=== PATIENT | male | born 1985 | race Two or more races ===

== ENCOUNTER 2016-08-26 18:15 | Emergency (ER) | payer BC ==
[2016-08-26] MEDS ORDERED: 0.9 % SODIUM CHLORIDE 1,000 ML BAG IV ONE (19:23)
--- NOTE | 2016-08-26 19:25 | Emergency Department Record ---
History of Present Illness - General Chief Complaint: Abdominal Pain Stated Complaint: RT SIDE PAIN Time Seen by Provider: 08/26/16 19:16 Source: Patient Mode of Arrival: Ambulatory - History of Present Illness Initial Comments: The patient states he has had RLQ and right flank pains over the past week waxing and waning, up to 5-6/10 scale severity. Since it is not going away he decided to get it checked. He denies f,c,n,v,d, urinary symptoms. He has had two hernia repairs in the past. MD Complaint: Abdominal pain, Flank pain Onset/Timin -: Week(s) Location: R Flank Radiation: RLQ Severity: Mild Consistency: Intermittent Improves With: Nothing Worsens With: Nothing - Related Data Home Medications Medication Instructions Recorded Confirmed Last Taken No Home Med [NO HOME MEDS] 08/26/16 08/26/16 Unknown Allergies Allergy/AdvReac Type Severity Reaction Status Date / Time No Known Drug Allergies Allergy Verified 08/26/16 18:44 Travel Screening - Travel/Exposure Within Last 30 Days Have you traveled within the last 30 days?: No - Travel/Exposure Within Last Year Have you traveled outside the [place] in the last year?: Yes Location Detail:: 11 months ago Cong - Additonal Travel Details Have you been exposed to anyone with a communicable illness?: No - Travel Symptoms Symptom Screening: None Review of Systems Reviewed: No additional complaints except as noted below Constitutional: Reports: As per HPI. Denies: Chills, Fever, Malaise, Night sweats, Weakness, Weight change Eyes: Reports: As per HPI. Denies: Eye discharge, Eye pain, Photophobia, Vision change ENT: Reports: As per HPI. Denies: Congestion, Dental pain, Ear pain, Epistaxis , Hearing loss, Throat pain Respiratory: Reports: As per HPI. Denies: Cough, Dyspnea, Hemoptysis, Stridor, Wheezes Cardiovascular: Reports: As per HPI. Denies: Arrhythmia, Chest pain, Dyspnea on exertion, Edema, Murmurs, Orthopnea, Palpitations, Paroxysmal nocturnal dyspnea, Rheumatic Fever, Syncope Endocrine: Reports: As per HPI. Denies: Fatigue, Heat or cold intolerance, Polydipsia, Polyuria Gastrointestinal: Reports: As per HPI. Denies: Abdominal pain, Constipation, Diarrhea, Hematemesis, Hematochezia, Melena, Nausea, Vomiting Genitourinary: Reports: As per HPI. Denies: Dysuria, Frequency, Hematuria, Incontinence, Retention, Testicular pain, Testicular mass, Urgency Musculoskeletal: Reports: As per HPI. Denies: Arthralgia, Back pain, Gout, Joint swelling, Myalgia, Neck pain Skin: Reports: As per HPI. Denies: Bruising, Change in color, Change in hair/ nails, Lesions, Pruritus, Rash Neurological: Reports: As per HPI. Denies: Abnormal gait, Confusion, Headache, Numbness, Paresthesias, Seizure, Tingling, Tremors, Vertigo, Weakness Psychiatric: Reports: As per HPI. Denies: Anxiety, Auditory hallucinations, Depression, Homicidal thoughts, Suicidal thoughts, Visual hallucinations Hematological/Lymphatic: Reports: As per HPI. Denies: Anemia, Blood Clots, Easy bleeding, Easy bruising, Swollen glands Past Medical History - SOCIAL HISTORY Smoking Status: Current every day smoker Alcohol Use: Rare Drug Use: None - RESPIRATORY Hx Respiratory Disorders: No - CARDIOVASCULAR Hx Cardio Disorders: No - NEURO Hx Neuro Disorders: No - GI Hx GI Disorders: Yes Hx Diverticulitis: Yes - Hx Genitourinary Disorders: No - ENDOCRINE Hx Endocrine Disorders: No - MUSCULOSKELETAL Hx Musculoskeletal Disorders: No - PSYCH Hx Psych Problems: No - HEMATOLOGY/ONCOLOGY Hx Hematology/Oncology Disorders: No Family Medical History Any Significant Family History?: Yes Hx Cancer: Mother Physical Exam - General General Appearance: Alert, Oriented x3, Cooperative, No acute distress - Head Head exam: Normal inspection - Eye Eye exam: Normal appearance, PERRL Pupils: Normal accommodation - ENT ENT exam: Normal exam, Mucous membranes moist, Normal external ear exam, Normal orophraynx, TM's normal bilaterally Ear exam: Normal external inspection. negative: External canal tenderness Nasal Exam: Normal inspection. negative: Discharge, Sinus tenderness Mouth exam: Normal external inspection, Tongue normal Teeth exam: Normal inspection. negative: Dental caries Throat exam: Normal inspection. negative: Tonsillar erythema, Tonsillar exudate - Neck Neck exam: Normal inspection, Full ROM. negative: Tenderness - Respiratory Respiratory exam: Normal lung sounds bilaterally. negative: Respiratory distress - Cardiovascular Cardiovascular Exam: Regular rate, Normal rhythm, Normal heart sounds - GI/Abdominal GI/Abdominal exam: Soft, Normal bowel sounds. negative: Tenderness - Rectal Rectal exam: Deferred - exam: Deferred - Extremities Extremities exam: Normal inspection, Full ROM, Normal capillary refill. negative: Tenderness - Back Back exam: Reports: Normal inspection, CVA tenderness (R) (tender over deep palpation of right flank, no colicky pain or visible discomfort. No swelling or ecchymosis.), Full ROM. Denies: Muscle spasm, Rash noted, Tenderness - Neurological Neurological exam: Alert, Normal gait, Oriented X3, Reflexes normal - Psychiatric Psychiatric exam: Normal affect, Normal mood - Skin Skin exam: Dry, Intact, Normal color, Warm Course Vital Signs 08/26/16 18:46 Temperature 98.1 F Pulse Rate 84 Respiratory 18 Rate Blood Pressure 139/85 Pulse Ox 98 - Reevaluation(s) Reevaluation #1: All labs normal. CT scan being read. Patient is comfortable awaiting results. He declined pain medication. 08/26/16 22:10 08/26/16 22:34 Reevaluation #2: Patient's lab and CT results were discussed. He has a trace of blood in his urine but no abnormality of CT scan and a normal visualized appendix. He is to follow up with Dr. Calderon his PCP for recheck of the trace of blood in his urine. He is comfortable at this time. 08/26/16 22:30 Medical Decision Making - Management Options MDM Management: No Additional Work-up Planned - Data Complexity MDM Data: Labs Ordered and/or Reviewed, X-Ray Ordered and/or Reviewed (Contrast CT abd/pelvis: No acute abnormality seen. Appendix is visualized and normal per radiologist.) - Lab Data Result diagrams: 08/26/16 19:40 08/26/16 19:40 Disposition Disposition: Discharge Clinical Impression: Right flank pain Disposition: Home, Self-Care Condition: (1) Good Instructions: Flank Pain, Cmo & President (GEN) Additional Instructions: No lifting bending twisting if having symptoms. Follow up with PCP for recheck of trace amount of blood in urine and routine follow up.
[2016-08-26 19:49] LABS: BASO % 0.4 % (0-6); EOS % 3.2 % (0-6); GRAN % 49.1 % (47-80); HEMATOCRIT 45.3 % (42.0-52.0); HEMOGLOBIN 15.4 gm/dl (14.0-18.0); LYMPH % 40.1 % (16-45); MEAN CELL VOLUME 90.4 fl (81-97); MEAN CORPUSCULAR HEMOGLOBIN 30.7 pg (27-33); MEAN PLATELET VOLUME 9.7 fl (7.4-10.4); MONO % 7.2 % (0-9); PLATELET COUNT 262 K/uL (130-400); RED BLOOD COUNT 5.01 M/uL (4.40-5.70); RED CELL DISTRIBUTION WIDTH 12.5 % (11.5-14.5); WHITE BLOOD COUNT W/O DIFF 10.3 K/uL (4.2-12.2)
[2016-08-26 19:50] LABS: URINE APPEARANCE CLEAR; URINE BILIRUBIN NEGATIVE (NEGATIVE); URINE BLOOD TRACE-I (NEGATIVE); URINE COLOR YELLOW; URINE GLUCOSE (UA) NEGATIVE (NEGATIVE); URINE KETONE NEGATIVE (NEGATIVE); URINE LEUKOCYTE ESTERASE NEGATIVE (NEGATIVE); URINE NITRITE NEGATIVE (NEGATIVE); URINE PROTEIN NEGATIVE (NEGATIVE); URINE UROBILINOGEN 0.2 E.U./dL (0.20 - 1.00)
[2016-08-26 19:58] LABS: URINE EPITHELIAL CELLS 0 - 2 (FEW); URINE RBC 0 - 2 (NONE SEEN); URINE WBC 0 - 2 (0-2/hpf)
[2016-08-26 20:00] LABS: ALBUMIN 4.6 gm/dL (3.5-5.0); ALKALINE PHOSPHATASE 96 U/L (38-126); ALT/SGPT 66 U/L (21-72); AMYLASE 103 U/L (30-110); ANION GAP 13.4 (7-16); AST/SGOT 35 U/L (17-59); BLOOD UREA NITROGEN 14 mg/dL (9-20); CARBON DIOXIDE 27.6 mmol/L (22-30); CREATININE 0.8 mg/dL (0.66-1.25); EST GLOMERULAR FILTRATION RATE > 60 ml/min; GLUCOSE,RANDOM 93 mg/dL (70-110); LIPASE 48 U/L (23-300); TOTAL PROTEIN 7.9 gm/dL (6.3-8.2)
[2016-08-26 20:12] LABS: TROPONIN I < 0.012 ng/mL (0.00-0.034)
== END 2016-08-26 22:42 | disposition home or self-care (01) ==
LOC: ER 18:15
DX: R10.31 Right lower quadrant pain (principal); R31.29 Other microscopic hematuria
CPT/HCPCS: 99284 ×2; 82150; 83690; 85025; 80076; 84484; 80048; 81001; 74177; Q9967; J7030

== ENCOUNTER 2018-02-06 20:07 | Emergency (ER) | payer BC ==
[2018-02-06] MEDS ORDERED: SODIUM CHLORIDE 0.9% 500 ML IV ONE (20:19)
--- NOTE | 2018-02-06 20:19 | Emergency Department Record ---
History of Present Illness - General Chief Complaint: Chest Pain Stated Complaint: CHEST PAIN Source: Patient Mode of Arrival: Ambulatory Limitations: No limitations - History of Present Illness Initial Comments: 32 yo male presents with chest pain. The pain started on Monday. The pain is mid chest, it radiates to the back and left arm. Over the last 5 days the pain has been constant and present 100% of the time. The pain has never completely resolved. The intensity does change depending on his position or movement. The pain seems to be worse going from laying to up right or back down again. The change in position is the main worsening factor that affects the pain. No shortness of breath, sweating, exertion symptoms, edema, calf pain. The pain has not resolved at any point in time since Monday. He has trouble sleeping because of the constant pain. It hurts to roll over or lay down and sleep due to the pain. No cough. No HTN, DM, elevated cholesterol, he is a non smoker. His dad at 58 from cardiac arrest. The patient did see his chiropractor for the pain. After manipulation the pain was worse. MD Complaint: Chest pain -: Days(s) (5) Onset: During rest Pain Location: Substernal Pain Radiation: LUE Severity: Moderate Quality: Other (sharp) Consistency: Constant Improves With: Rest Worsens With: Movement, Other (position changes) Context: Other Anginal Symptoms: Other Other Symptoms: Other - Related Data Previous Rx's Medication Instructions Recorded Cyclobenzaprine HCl [Flexeril] 10 mg PO TID #20 tablet 02/06/18 Allergies Allergy/AdvReac Type Severity Reaction Status Date / Time No Known Drug Allergies Allergy Verified 08/26/16 18:44 Review of Systems Constitutional: Denies: Chills, Fever, Malaise, Weakness Eyes: Denies: Eye discharge ENT: Denies: Congestion, Throat pain Respiratory: Denies: Cough, Dyspnea, Hemoptysis, Stridor, Wheezes Cardiovascular: Reports: As per HPI, Chest pain. Denies: Dyspnea on exertion, Edema, Orthopnea, Palpitations, Syncope Endocrine: Denies: Fatigue, Polydipsia, Polyuria Gastrointestinal: Denies: Abdominal pain, Diarrhea, Nausea, Vomiting Genitourinary: Denies: Dysuria, Frequency, Hematuria Musculoskeletal: Reports: Back pain. Denies: Arthralgia, Joint swelling, Myalgia, Neck pain Skin: Denies: Bruising, Change in color, Rash Neurological: Denies: Confusion, Headache, Numbness, Tingling, Tremors, Vertigo , Weakness Psychiatric: Denies: Anxiety Hematological/Lymphatic: Denies: Blood Clots, Easy bleeding, Easy bruising, Swollen glands Past Medical History - SOCIAL HISTORY Smoking Status: Current every day smoker Drug Use: None - RESPIRATORY Hx Respiratory Disorders: No - CARDIOVASCULAR Hx Cardio Disorders: No - NEURO Hx Neuro Disorders: No - GI Hx GI Disorders: Yes Hx Diverticulitis: Yes - Hx Genitourinary Disorders: No - ENDOCRINE Hx Endocrine Disorders: No - MUSCULOSKELETAL Hx Musculoskeletal Disorders: No - PSYCH Hx Psych Problems: No - HEMATOLOGY/ONCOLOGY Hx Hematology/Oncology Disorders: No Family Medical History Hx Cancer: Mother Physical Exam - General General Appearance: Alert, Oriented x3, Cooperative, No acute distress Limitations: No limitations - Head Head exam: Atraumatic, Normal inspection - Eye Eye exam: Normal appearance. negative: Conjunctival injection - ENT ENT exam: Normal exam Ear exam: Normal external inspection Nasal Exam: Normal inspection Mouth exam: Normal external inspection - Neck Neck exam: Normal inspection, Full ROM. negative: Tenderness - Respiratory Respiratory exam: Normal lung sounds bilaterally, Chest wall tenderness (The pain reproduced with moving, sitting up and laying down in bed). negative: Accessory muscle use, Decreased breath sounds, Prolonged expiratory, Respiratory distress, Rhonchi, Stridor, Wheezes - Cardiovascular Cardiovascular Exam: Regular rate, Normal rhythm, Normal heart sounds Peripheral Pulses: 2+: Radial (R), Radial (L) - GI/Abdominal GI/Abdominal exam: Soft. negative: Tenderness - Rectal Rectal exam: Deferred - exam: Deferred - Extremities Extremities exam: Normal inspection, Full ROM, Normal capillary refill. negative: Calf tenderness, Pedal edema, Tenderness - Back Back exam: Reports: Normal inspection, Full ROM, Other (Pain in the back with moving from laying to sitting up). Denies: CVA tenderness (R), CVA tenderness ( L), Paraspinal tenderness, Tenderness, Vertebral tenderness - Neurological Neurological exam: Alert, Normal gait, Oriented X3 - Psychiatric Psychiatric exam: Normal affect, Normal mood. negative: Agitated, Anxious - Skin Skin exam: Dry, Intact, Normal color, Warm. negative: Diaphoretic Course - Reevaluation(s) Reevaluation #1: EKG #1 2011 Rate 70 Rhythm Sinus [place] Normal ST Normal Normal EKG. No old for comparison. 02/06/18 20:18 The vitals were reviewed. No abnormalities The patient is well appearing. The pain is atypical in that is constant and worsens with changes in position. Atypical for ACS. The pain is repro 02/06/18 20:42 02/06/18 21:02 The CMP was normal The CBC was normal The D-dimer is normal The CRP is normal 02/06/18 21:09 I recommended a CTA due to the pain going through the chest to the back. 02/06/18 21:10 Troponin is normal after 5 days of pain that is atypical and has never completely resolved. Very low suspicion for ACS. I explained that serial enzymes are usually performed but with over 100 hours of pain that is constant and positional serial enzymes have very low utility. 02/06/18 21:32 ESR is negative at 9 No lab or EKG findings for pericarditis, myocarditis. 02/06/18 21:[address] scan was reviewed. No acute process. I reviewed all results with the patient. Again, the pain is very atypical for a serious cause. No indication for further testing at this time. He will be referred to his PCP and outpatient cardiology for his atypical chest and back pain. Medical Decision Making - Lab Data Result diagrams: 02/06/18 20:18 02/06/18 20:18 Disposition Disposition: Discharge Clinical Impression: Atypical chest pain Disposition: Home, Self-Care Condition: (1) Good Instructions: Chest Pain (ED) Additional Instructions: Call your doctor for a recheck this week Return to the ER immediately if the pain is not reproduced with movement, short of breath, cough, fever, sweating or pain with activity or exertion You may take Motrin for the pain as directed You have been referred to the cardiology clinic for the pain. You will be called for an appointment time. Prescriptions: Cyclobenzaprine HCl [Flexeril] 10 mg PO TID #20 tablet Referrals: TATO COPELAND M.D. [MEDICAL DOCTOR] - [facility] [Provider Group] Forms: Patient Portal Access Time of Disposition: 21:58 Quality - Quality Measures Quality Measures: N/A - Blood Pressure Screening Does Patient Have Any of the Following: No Blood Pressure Classification: Normal BP Reading Systolic Measurement: 117 Diastolic Measurement: 58 Screening for High Blood Pressure: < Normal BP, F/U Not Required > [G6938]
[2018-02-06 20:28] LABS: BASO % 0.4 % (0-6); EOS % 3.4 % (0-6); GRAN % 42.4 % (47-80); HEMATOCRIT 42.2 % (42.0-52.0); HEMOGLOBIN 14.4 gm/dl (14.0-18.0); LYMPH % 45.9 % (16-45); MEAN CELL VOLUME 87.9 fl (81-97); MEAN CORPUSCULAR HGB CONC 34.1 g/dl (32-36); MEAN PLATELET VOLUME 9.4 fl (7.4-10.4); MONO % 7.9 % (0-9); PLATELET COUNT 225 K/uL (130-400); RED CELL DISTRIBUTION WIDTH 12.9 % (11.5-14.5); WHITE BLOOD COUNT W/O DIFF 8.3 K/uL (4.2-12.2)
[2018-02-06 20:43] LABS: BLOOD UREA NITROGEN 19 mg/dL (6-20); CREATININE 1.1 mg/dL (0.7-1.2); EST GLOMERULAR FILTRATION RATE > 60 mL/min; PARTIAL THROMBOPLASTIN TIME 28.9 SECONDS (24.5-39.1); PROTHROMBIN TIME (PATIENT) 10.6 SECONDS (9.5-12.1); TOTAL PROTEIN 7.4 g/dL (6.6-8.7)
[2018-02-06 20:45] LABS: GLUCOSE,RANDOM 95 mg/dL (74-109)
[2018-02-06 20:48] LABS: ALB/GLOB RATIO 1.6 (1.1-1.8); ALBUMIN 4.5 g/dL (4.0-5.0); ALKALINE PHOSPHATASE 84 U/L (40-129); ALT/SGPT 34 U/L (<41); AST/SGOT 22 U/L (10.0-50.0); C-REACTIVE PROTEIN 0.04 mg/dL (<0.5)
[2018-02-06] MEDS ORDERED: KETOROLAC 30 MG/ML VIAL IVP ONE (21:05)
[2018-02-06] MEDS ORDERED: HYDROCODONE/APAP 5/325MG TABLET PO ONE (21:58)
--- NOTE | 2018-02-07 15:14 | CT ANGIOGRAM REPORT ---
EXAM: CTA OF THE CHEST HISTORY: CHEST PAIN, DIFFICULTY BREATHING. TECHNIQUE: CTA of the chest was performed after intravenous administration of 80 ml of Omnipaque 350 contrast material. Sagittal and coronal MIP images were performed on an independent workstation. FINDINGS: There is suboptimal timing of the contrast bolus. No large mass or filling defect to suggest pulmonary embolism. Evaluation in the lobar segmental arterial branches is limited. The heart size is normal. No mediastinal or hilar lymphadenopathy. The lung echeverria are clear. The visualized superior abdominal structures are normal. IMPRESSION: SUBOPTIMAL TIMING OF THE CONTRAST BOLUS. NO LARGE PULMONARY EMBOLISM APPRECIATED. NO INFILTRATE OR PLEURAL EFFUSION. JOB NUMBER: [id number] MTDD
== END 2018-02-06 22:13 | disposition home or self-care (01) ==
LOC: ER 20:07
DX: R07.89 Other chest pain (principal); F17.210 Nicotine dependence, cigarettes, uncomplicated
CPT/HCPCS: 71275; 80053; 84484; 85025; 85379; 85610; 85651; 85730; 86140; 93005; 93010; 96374; 99284; J1885

== ENCOUNTER 2019-01-17 13:13 | Emergency (ER) | payer BC ==
[2019-01-17] MEDS ORDERED: 0.9 % SODIUM CHLORIDE 1,000 ML BAG IV ONE (13:36)
--- NOTE | 2019-01-17 13:43 | Emergency Department Record ---
History of Present Illness - General Chief Complaint: Abdominal Pain Stated Complaint: LOWER ABD PAIN Time Seen by Provider: 01/17/19 13:36 Source: Patient Mode of Arrival: Ambulatory Limitations: No limitations - History of Present Illness Initial Comments: Pt to the ED with complaint of abdominal pain. Pt states over the past 1-2 days haydee has had lower abdominal pain and a sense of constipation. He has taken Miralax and and enema with minimal return. He denies fever, and has mild nausea but is "hungry". There is no vomiting. Past surgical hx is positive for umbilical hernia and inguinal hernia. Pt also relates a hx of diverticulitis 2 years ago treated with AB and follow up colonoscopy. Pain is worse with motion and walking. Better if still. No urinary pain, no scrotal pain. Onset/Timin -: Days(s) Location: Suprapubic Severity: Mild Improves With: Nothing Worsens With: Nothing Associated Symptoms: Denies other symptoms - Related Data Allergies Allergy/AdvReac Type Severity Reaction Status Date / Time No Known Drug Allergies Allergy Unverified 05/14/18 18:48 Travel Screening - Travel/Exposure Within Last 30 Days Have you traveled within the last 30 days?: No - Travel/Exposure Within Last Year Have you traveled outside the [place] in the last year?: No - Additonal Travel Details Have you been exposed to anyone with a communicable illness?: No Review of Systems Constitutional: Denies: Chills, Fever, Weakness Eyes: Denies: Eye discharge, Photophobia ENT: Denies: Congestion Respiratory: Denies: Cough, Dyspnea Cardiovascular: Denies: Chest pain, Syncope Endocrine: Denies: Fatigue Gastrointestinal: Reports: As per HPI, Nausea. Denies: Diarrhea Genitourinary: Denies: Discharge, Frequency Skin: Denies: Bruising Neurological: Denies: Headache, Seizure, Weakness Psychiatric: Denies: Anxiety Hematological/Lymphatic: Denies: Anemia Past Medical History - SOCIAL HISTORY Smoking Status: Current every day smoker Alcohol Use: None Drug Use: None - RESPIRATORY Hx Respiratory Disorders: No - CARDIOVASCULAR Hx Cardio Disorders: No - NEURO Hx Neuro Disorders: No - GI Hx GI Disorders: Yes Hx Diverticulitis: Yes Comment:: hernia - Hx Genitourinary Disorders: No - ENDOCRINE Hx Endocrine Disorders: No - MUSCULOSKELETAL Hx Musculoskeletal Disorders: No - PSYCH Hx Psych Problems: No - HEMATOLOGY/ONCOLOGY Hx Hematology/Oncology Disorders: No Family Medical History Any Significant Family History?: No Hx Cancer: Mother Physical Exam - General General Appearance: Alert, Oriented x3, Cooperative, Mild distress - Head Head exam: Atraumatic - Eye Eye exam: Normal appearance, PERRL, EOMI - ENT ENT exam: Normal exam, Mucous membranes moist, Normal external ear exam, Normal orophraynx, TM's normal bilaterally - Neck Neck exam: Normal inspection, Full ROM. negative: Tenderness - Respiratory Respiratory exam: Normal lung sounds bilaterally. negative: Respiratory distress - Cardiovascular Cardiovascular Exam: Regular rate, Normal rhythm, Normal heart sounds Peripheral Pulses: 2+: Radial (R), Radial (L) - GI/Abdominal GI/Abdominal exam: Soft, Diminished bowel sounds, Guarding, Rebound (Percussion tenderness to the lower abd R>L. ), Tenderness - exam: Circumcision, Normal inspection. negative: Scrotal swelling, Testicular tenderness - Extremities Extremities exam: Normal inspection. negative: Tenderness - Back Back exam: Reports: Normal inspection. Denies: Paraspinal tenderness - Neurological Neurological exam: Alert, Normal gait, Oriented X3. negative: Motor sensory deficit - Psychiatric Psychiatric exam: Normal affect, Normal mood - Skin Skin exam: Normal color. negative: Rash Course Vital Signs 01/17/19 13:23 Temperature 100.2 F H Pulse Rate 124 H Respiratory 18 Rate Blood Pressure 117/74 Pulse Ox 100 - Reevaluation(s) Reevaluation #1: 01/17/19 13:44 Seen and examined. IV with labs obtained. Ordered CT. Pending. Reevaluation #2: 01/17/19 16:39 CT with sigmoid diverticulitis and perf. + free air. Pt remains NPO. IV Levaquin and Flagyl as well as pain meds. Pt aware of dx and plan. Dr Kan accepts to the ED for evaluation at [facility]. Medical Decision Making - Data Complexity MDM Data: Labs Ordered and/or Reviewed, X-Ray Ordered and/or Reviewed, EKG Ordered and/or Reviewed, Discussion of Test Results With Performing Physician - Lab Data Result diagrams: 01/17/19 13:40 01/17/19 13:40 - Radiology Data Radiology results: Report reviewed, Image reviewed Disposition Disposition: Transfer Clinical Impression: Perforation of sigmoid colon due to diverticulitis, Leukocytosis Disposition: Acute Care Hospital Transfer Transfer To: [facility] Reason For Transfer: Surgical care Accepting Physician: Dr. Kan surgery and Dr. Abreu in ED Time Discussed w/Accepting Physician: 16:39 Condition: (3) Guarded Forms: Patient Portal Access Time of Disposition: 16:39 Quality - Quality Measures Quality Measures: N/A - Blood Pressure Screening Does Patient Have Any of the Following: No Blood Pressure Classification: Normal BP Reading Systolic Measurement: 117 Diastolic Measurement: 74 Screening for High Blood Pressure: < Normal BP, F/U Not Required > [G8783] Pre-Hypertensive Follow-up Interventions: Follow-up with rescreen every year.
[2019-01-17 13:50] LABS: ABSOLUTE NEUTROPHIL COUNT 11.71; BASO % 0.1 % (0-6); EOS % 0.7 % (0-6); GRAN % 74.6 % (47-80); HEMOGLOBIN 14.7 gm/dl (14.0-18.0); LYMPH % 14.1 % (16-45); MEAN CELL VOLUME 89.8 fl (81-97); MEAN CORPUSCULAR HGB CONC 33.4 g/dl (32-36); MEAN PLATELET VOLUME 9.5 fl (7.4-10.4); MONO % 10.5 % (0-9); PLATELET COUNT 257 K/uL (130-400); RED CELL DISTRIBUTION WIDTH 13.1 % (11.5-14.5); WHITE BLOOD COUNT W/O DIFF 15.7 K/uL (4.2-12.2)
[2019-01-17 13:58] LABS: BLOOD UREA NITROGEN 10 mg/dL (6-20); CREATININE 0.8 mg/dL (0.7-1.2); EST GLOMERULAR FILTRATION RATE > 60 mL/min
[2019-01-17 13:59] LABS: TOTAL PROTEIN 8.1 g/dL (6.6-8.7)
[2019-01-17 14:01] LABS: GLUCOSE,RANDOM 106 mg/dL (74-109)
[2019-01-17 14:04] LABS: ALB/GLOB RATIO 1.4 (1.1-1.8); ALBUMIN 4.7 g/dL (4.0-5.0); ALKALINE PHOSPHATASE 93 U/L (40-129); ALT/SGPT 28 U/L (<41); AST/SGOT 13 U/L (10.0-50.0)
[2019-01-17 14:39] LABS: URINE APPEARANCE CLEAR; URINE BILIRUBIN NEGATIVE (NEGATIVE); URINE BLOOD MODERATE (NEGATIVE); URINE COLOR YELLOW; URINE GLUCOSE (UA) NEGATIVE (NEGATIVE); URINE KETONE NEGATIVE (NEGATIVE); URINE LEUKOCYTE ESTERASE NEGATIVE (NEGATIVE); URINE NITRITE NEGATIVE (NEGATIVE); URINE PROTEIN TRACE (NEGATIVE)
[2019-01-17 14:47] LABS: URINE EPITHELIAL CELLS NONE SEEN (FEW); URINE WBC NONE SEEN (0-2/hpf)
[2019-01-17] MEDS ORDERED: HYDROMORPHONE HCL 2 MG/ML VIAL IVP ONE (16:11)
[2019-01-17] MEDS ORDERED: LEVOFLOXACIN 500MG IVPB 500 MG/100 ML BAG IVPB ONE (16:36)
[2019-01-17] MEDS ORDERED: METRONIDAZOLE IVPB 500 MG/100 ML BAG IVPB ONE (16:37)
[2019-01-17] MEDS ORDERED: ONDANSETRON HCL IV 4 MG/2 ML VIAL IVP ONE (17:17)
--- NOTE | 2019-01-18 14:14 | CT SCAN REPORT ---
EXAM: CT OF THE ABDOMEN AND PELVIS WITH CONTRAST HISTORY: PELVIC PAIN, CONSTIPATION, LOW GRADE FEVER FOR TWO DAYS WITH ELEVATED WHITE COUNT. HISTORY OF PREVIOUS DIVERTICULITIS AND HERNIA REPAIR. TECHNIQUE: CT of the abdomen and pelvis was obtained with 100 ml of Omnipaque 300. Comparison: 08/26/16. FINDINGS: LUNG BASES: Clear. No acute process or pulmonary nodule. LIVER: Normal. GALLBLADDER: Normal. BILIARY TREE: Normal. PANCREAS: Normal. SPLEEN: Normal. ADRENAL GLANDS: Normal. KIDNEYS: Show no hydronephrosis or mass. In the retroperitoneum there is no adenopathy or hematoma. AORTA: Shows no aneurysm or dissection. The aortic branches are opacified with contrast. ABDOMINAL WALL: Intact. No hernia or inflammation. MESENTERY: There is no free fluid. There is a small amount of free air with surrounding fat stranding centrally within the pelvis adjacent to loops of sigmoid colon. STOMACH AND SMALL BOWEL: Unremarkable. No distention or wall thickening. The cecum, ascending, transverse, and descending colon appear normal. The sigmoid colon shows some scattered diverticula. As mentioned above there is inflammation associated with the sigmoid colon with some extraluminal air present adjacent to a prominent diverticulum. The rectum appears normal. The bladder is unremarkable. The bony pelvis shows no suspicious lesion. The lumbar spine appears normal. IMPRESSION: SIGMOID DIVERTICULITIS WITH PERFORATION INTRODUCING FREE AIR INTO THE MESENTERY OF THE PELVIS, BUT THERE IS NO SIGN OF ABSCESS OR FREE FLUID. JOB NUMBER: [id number] MTDD
== END 2019-01-17 17:43 | disposition short-term general hospital (02) ==
LOC: ER 13:13
DX: K57.20 Diverticulitis of large intestine with perforation and abscess without bleeding (principal); D72.829 Elevated white blood cell count, unspecified; F17.200 Nicotine dependence, unspecified, uncomplicated
CPT/HCPCS: 99285 ×2; 96365; 96375; 85025; 80053; 81001; 74177; Q9967; J2405; J1170; J1956; J7030